=== PATIENT | male | born 1935 | race Caucasian/White ===

== ENCOUNTER 2017-12-27 09:38 | Emergency (ER) | payer MEDICARE, BC ==
[~2017-12-27] VITALS: Ht 175.3 cm; Wt 81.8 kg
[~2017-12-27 09:38] MED LIST: ASPIRIN 81M81 MG/TA2 PO; PRINZIDE 25 MG-1 TAB PO; ZOCOR 40MG40 MG PO
[2017-12-27 09:49] VITALS: TEMP 98.1
[2017-12-27] MEDS ORDERED: [UNRECOGNIZED DRUG - OTHER] TOP (09:55)
[2017-12-27] MEDS ORDERED: FLOMAX 0.40.4 MG/CAP PO (09:55)
[2017-12-27 10:36] LABS: BASO % 0.6 % (0.0-2.0); EOS # 0.1 (0.0-0.7); EOS % 1.9 % (0-4.0); GRAN # 4.7 (1.4-6.5); GRAN % 73.4 % (42.2-75.2); HEMATOCRIT 42.3 % (42.0-52.0); LYMPH # 0.9 (1.2-3.4); MEAN CELL VOLUME 89 fl (80.0-100.0); MEAN CORPUSCULAR HEMOGLOBIN 30 pg (27.0-31.0); MEAN CORPUSCULAR HGB CONC 33 g/dl (33.0-37.0); MEAN PLATELET VOLUME 12.4 fl (7.4-10.4); MONO # 0.6 (0.1-0.6); MONO % 9.9 % (1.7-9.3); PLATELET COUNT 160 K/mm3 (130-400); RED BLOOD COUNT 4.75 M/mm3 (4.20-5.60); REDCELL DISTRIBUTION WIDTH-CV 13.2 % (11.5-14.5)
[2017-12-27 10:41] LABS: ALANINE AMINOTRANSFERASE 29 U/L (21-72); ALBUMIN 3.7 gm/dL (3.5-5.0); ALKALINE PHOSPHATASE 81 U/L (50-136); ANION GAP 10 mmol/L (7-16); AST,SGOT 23 U/L (15-37); BILIRUBIN,TOTAL 0.6 mg/dL (0.0-1.0); BLOOD UREA NITROGEN 36 mg/dL (9-20); CARBON DIOXIDE 24 mmol/L (22-30); CHLORIDE 98 mmol/L (98-107); CREATININE, serum 1.22 mg/dL (0.66-1.25); GLUCOSE 98 mg/dL (74-106); POTASSIUM 4.4 mmol/L (3.4-5.0); SODIUM 133 mmol/L (137-145); TOTAL PROTEIN 6.5 gm/dL (6.4-8.2)
[2017-12-27 10:53] LABS: COLLECTION METHOD CLEAN CATCH
[2017-12-27 10:57] LABS: TROPONIN-I < 0.012 ng/mL (0.000-0.034)
[2017-12-27 11:18] LABS: MUCOUS Present /lpf; PH 5 (5-8); SQUAMOUS EPITHELIAL 0-2 /hpf; URINE APPEARANCE Clear; URINE BACTERIA None Seen /hpf; URINE BILIRUBIN Negative (NEGATIVE); URINE BLOOD Negative (NEGATIVE); URINE COLOR Yellow; URINE GLUCOSE Negative (NEGATIVE); URINE KETONE Negative (NEGATIVE); URINE LEUKOCYTE ESTERASE Negative (NEGATIVE); URINE NITRATE Negative (NEGATIVE); URINE PROTEIN(semi-quant) Negative (NEGATIVE); URINE RBC 0-2 /hpf; URINE UROBILINOGEN Negative (NEGATIVE)
[2017-12-27 12:28] VITALS: BP 131/73; PULSE 59
== END 2017-12-27 12:28 | disposition home or self-care (01) ==
LOC: COL.ER 09:38
PROVIDERS: Family Medicine
DX: R53.83 Other fatigue (principal); I10 Essential (primary) hypertension

== ENCOUNTER → 2018-01-07 | Outpatient (CLI) | payer MEDICARE, BC ==
[~2018-01-07] MED LIST changes: +FLOMAX 0.40.4 MG/CAP PO; +[UNRECOGNIZED DRUG - OTHER] TOP
== END ==
LOC: COL.VAS 12:20
DX: I65.23 Occlusion and stenosis of bilateral carotid arteries (principal)

== ENCOUNTER 2021-03-13 10:00 | Emergency (ER) | payer MEDICARE, BC ==
[2021-03-13 10:41] LABS: BASO % 0.5 % (0.0-2.0); EOS # 0.2 (0.0-0.7); EOS % 2.5 % (0-4.0); GRAN # 5.8 (1.4-6.5); GRAN % 72.5 % (42.2-75.2); HEMATOCRIT 45.4 % (42.0-52.0); LYMPH # 1.3 (1.2-3.4); MEAN CELL VOLUME 92 fl (80.0-100.0); MEAN CORPUSCULAR HEMOGLOBIN 30 pg (27.0-31.0); MEAN CORPUSCULAR HGB CONC 33 g/dl (33.0-37.0); MEAN PLATELET VOLUME 12.1 fl (7.4-10.4); MONO # 0.7 (0.1-0.6); MONO % 8.4 % (1.7-9.3); PLATELET COUNT 169 K/mm3 (130-400); RED BLOOD COUNT 4.93 M/mm3 (4.20-5.60); REDCELL DISTRIBUTION WIDTH-CV 13.2 % (11.5-14.5)
[2021-03-13 10:49] LABS: BLOOD UREA NITROGEN 34 mg/dL (9-20); CHLORIDE 104 mmol/L (98-107); CREATININE, serum 1.32 (0.66-1.25); GLUCOSE 124 mg/dL (74-106); POTASSIUM 4.2 mmol/L (3.4-5.0); SODIUM 137 mmol/L (137-145)
[2021-03-13 10:50] LABS: ALANINE AMINOTRANSFERASE 17 U/L (4-49); ALBUMIN 4.2 gm/dL (3.5-5.0); ALKALINE PHOSPHATASE 68 U/L (50-136); ANION GAP 11 mmol/L (7-16); AST,SGOT 20 U/L (15-37); BILIRUBIN,TOTAL 0.6 mg/dL (0.0-1.0); CALCIUM 8.7 mg/dL (8.4-10.2); CARBON DIOXIDE 22 mmol/L (22-30); LIPASE 81 U/L (23-300)
[2021-03-13 11:03] LABS: TROPONIN-I < 0.012 ng/mL (0.000-0.035)
[2021-03-13 12:45] LABS: COLLECTION METHOD CLEAN CATCH
[2021-03-13 12:54] LABS: MUCOUS Present /lpf; PH 5 (5-8); SQUAMOUS EPITHELIAL None Seen /hpf; URINE APPEARANCE Clear; URINE BACTERIA None Seen /hpf; URINE BILIRUBIN Negative (NEGATIVE); URINE BLOOD Negative (NEGATIVE); URINE COLOR Yellow; URINE GLUCOSE Negative (NEGATIVE); URINE KETONE Negative (NEGATIVE); URINE LEUKOCYTE ESTERASE Negative (NEGATIVE); URINE NITRATE Negative (NEGATIVE); URINE PROTEIN(semi-quant) Negative (NEGATIVE); URINE RBC 0-2 /hpf; URINE UROBILINOGEN Negative (NEGATIVE)
[2021-03-13 14:33] LABS: CLOSTRIDIUM DIFF A/B NEG; CLOSTRIDIUM DIFF A/B INTERP No C.diff present
[2021-03-13 15:25] VITALS: BP 148/90; PULSE 80; TEMP 97.6
== END 2021-03-13 15:25 | disposition home or self-care (01) ==
LOC: COL.ER 10:00
PROVIDERS: Emergency Medicine
DX: R19.7 Diarrhea, unspecified (principal); I10 Essential (primary) hypertension; E78.5 Hyperlipidemia, unspecified; Z79.899 Other long term (current) drug therapy
CPT/HCPCS: J7030

== ENCOUNTER 2024-03-15 11:07 | Inpatient (IN) | payer MEDICARE, BC ==
[~2024-03-15] VITALS: Ht 175.3 cm; Wt 107.4 kg
[2024-03-15] VITALS (14 sets, daily range): BP systolic 151–177; BP diastolic 69–107; PULSE 42–84; TEMP 98.3–99.6
[2024-03-15] MEDS ORDERED: NS 1,000 ML IV ONE (11:30)
[2024-03-15 11:40] LABS: BASO % 0.3 % (0.0-2.0); EOS # 0.1 K/mm3 (0.0-0.7); EOS % 0.9 % (0.0-4.0); GRAN # 9.2 K/mm3 (1.4-6.5); GRAN % 79.7 % (42.2-75.2); HEMATOCRIT 44.1 % (42.0-52.0); HEMOGLOBIN 14.6 g/dl (13.5-18.0); LYMPH % 8.9 % (20.0-51.0); MEAN CELL VOLUME 91 fl (80.0-100.0); MEAN CORPUSCULAR HEMOGLOBIN 30 pg (27-31); MEAN CORPUSCULAR HGB CONC 33 g/dl (33.0-37.0); MEAN PLATELET VOLUME 13.7 fl (7.4-10.4); MONO # 1.2 K/mm3 (0.1-0.6); MONO % 9.9 % (1.7-9.3); PLATELET COUNT 138 K/mm3 (130-400); RED BLOOD COUNT 4.83 M/mm3 (4.20-5.60); REDCELL DISTRIBUTION WIDTH-CV 13.3 % (11.5-14.5)
[2024-03-15 12:13] LABS: ALBUMIN 3.7 g/dL (3.4-4.8); BILIRUBIN,TOTAL 1.5 mg/dL (0.2-1.2); CALCIUM 8.8 mg/dL (8.4-10.2); CREATININE, serum 1.32 mg/dL (0.72-1.25); POTASSIUM 3.8 mEq/L (3.5-4.5); TOTAL PROTEIN 6.7 g/dl (6.2-8.1)
[2024-03-15 12:22] LABS: TROPONIN-I 0.01 ng/mL (0.00-0.033)
[2024-03-15 12:37] LABS: INR 1.1 (0.8-3.0); PROTHROMBIN TIME 11.9 SECONDS (9.7-12.8)
[2024-03-15] MEDS ORDERED: 1/2 NS 1,000 ML IV SCH ×2 (13:30→16:15)
[2024-03-15] MEDS ORDERED: Acetaminophen 325 MG TAB PO PRN (14:30)
[2024-03-15] MEDS ORDERED: Docusate Sodium 100 MG CAP PO PRN (14:30)
[2024-03-15] MEDS ORDERED: Ondansetron 4 MG/2 ML VIAL IV PRN (14:30)
[2024-03-15] MEDS ORDERED: Polyethylene Glycol 3350 17 GM PDS PO PRN (14:30)
[2024-03-15] MEDS ORDERED: niCARdipine (Cath Lab) 100 MCG/ML 10 ML VIAL IA SCH (14:45)
[2024-03-15] MEDS ORDERED: Heparin 1,000 UNITS/ML 10 ML Multi-Dose VIAL IV SCH (14:46)
[2024-03-15] MEDS ORDERED: fentaNYL 50 MCG/ML 2 ML VIAL IV SCH (15:43)
[2024-03-15] MEDS ORDERED: Midazolam 2 MG/2 ML VIAL IV SCH (15:44)
--- NOTE | 2024-03-15 15:45 | NUR ---
Taurus was transferred to Medical floor rm 317 after left heart cath with Dr. Manriquez. He is accompanied by his Son Fidel. Taurus is awake and alert, pwd with reg and unlabored resps. TR band to rt wrist, cmc intact distal. No evidence of bleeding. BS report and handoff of care to Tabitha CARREON. Please see Merge document in paper chart for record of procedure.
[2024-03-15] MEDS ORDERED: HYZAAR 12.5 MG-1 TAB PO (16:38)
[2024-03-15] MEDS ORDERED: TOPROL XL 25MG25 MG PO (16:39)
[2024-03-15] MEDS ORDERED: NORVASC 5MG5 MG/TAB PO (16:40)
[2024-03-15] MEDS ORDERED: LIPITOR20 MG PO (16:42)
[2024-03-15] MEDS ORDERED: TRIAM OI 80 0.025 TOP (16:46)
[2024-03-15] MEDS ORDERED: hydrALAZINE 20 MG/ML 1 ML VIAL IV PRN (17:15)
--- NOTE | 2024-03-15 20:41 | NUR ---
PATIENT RESTING IN BED. REPORTING DISCOMFORT IN BACK FROM HAVING TO LAY ON HIS BACK VERSUS HIS SIDE. ALSO FRUSTRATED ABOUT FREQUENCY OF POST OP VITAL SIGNS. CALL LIGHT WITHIN REACH. BED IS LOCKED AND IN LOW POSITION.
[2024-03-15] MEDS ORDERED: Simvastatin 40 MG **** subs to Atorvastatin 20 MG PO SCH (21:00)
[2024-03-15] MEDS ORDERED: Atorvastatin 20 MG TAB PO SCH (21:00)
[2024-03-15] MEDS ORDERED: amLODIPine 5 MG TAB PO SCH (21:00)
--- NOTE | 2024-03-15 23:39 | NUR ---
PATIENT CALLED REQUESTING TYLENOL SHORTLY AFTER 2100, AFTER HAVING RECEIVED HIS EVENING/HS MEDS. ASHLY CARREON, GAVE PATIENT 650 MG PO TYLENOL AND INFORMED ME THAT THE PATIENT SEEMED TO CHOKE ON THE MEDICATION AND SPIT UP A LARGE AMOUNT OF MUCUS. THIS RN THEN ASSESSED PATIENT AGAIN, LUNG SOUNDS CLEAR BILATERALLY BUT HE DID HAVE AUDIBLE SECRETIONS IN HIS THROAT. INFORMED HOSPITALIST, ARIANNA WILSON, ADVISED TO CONTINUE TO MONITOR AND WILL HAVE CHEST XRAY IN AM.
--- NOTE | 2024-03-15 23:54 | NUR ---
SECTION 8 PROPERTY MANAGER CALLED AND ADVISED THAT PATIENT WAS COMPLETELY OFF TELE MONITORING. THIS RN CHECKED LEADS, REPLACED STICKERS, AND CHANGED BATTERIES, HOWEVER PATIENT REMAINED OFF TELE. CALLED TECH BACK AND LET HIM KNOW EVERYTHING THAT WAS TRIED AND IT WAS DECIDED TO SWAP OUT BOXES. NEW TELE BOX PLACED ON PATIENT AND PATIENT IS AGAIN BEING MONITORED BY CAN DRAGGER.
[2024-03-16] VITALS (13 sets, daily range): BP systolic 113–170; BP diastolic 56–75; PULSE 57–72; TEMP 97.6–99.9
--- NOTE | 2024-03-16 03:57 | NUR ---
PCT INFORMED THIS RN THAT PATIENT'S SYSTOLIC BP WAS 170 AND WAS REPORTING PAIN 9/10. GAVE PRN 10 MG IV HYDRALAZINE FOR HIS SBP OF 170 ALONG WITH 650 MG PO TYLENOL FOR HIS PAIN. PATIENT STATES THAT THE "NEXT TIME" THIS RN GOES INTO THE ROOM HE WANTS "SOME MORPHINE TO GO TO SLEEP AND STAY ASLEEP". ATTEMPTED TO EDUCATE THAT THE PROVIDER WILL LIKELY NOT GIVE MORPHINE A SLEEP AID, PATIENT THEN ROLLED OVER TO FACE OPPOSITE WALL AND DID NOT WANT TO CONTINUE CONVERSATION.
[2024-03-16 06:43] LABS: BASO % 0.2 % (0.0-2.0); EOS % 0.1 % (0.0-4.0); GRAN # 16.6 K/mm3 (1.4-6.5); GRAN % 89.2 % (42.2-75.2); HEMATOCRIT 42.8 % (42.0-52.0); HEMOGLOBIN 14.8 g/dl (13.5-18.0); LYMPH # 0.7 K/mm3 (1.2-3.4); LYMPH % 3.8 % (20.0-51.0); MEAN CELL VOLUME 89 fl (80.0-100.0); MEAN CORPUSCULAR HEMOGLOBIN 31 pg (27-31); MEAN CORPUSCULAR HGB CONC 35 g/dl (33.0-37.0); MEAN PLATELET VOLUME 13.7 fl (7.4-10.4); MONO # 1.1 K/mm3 (0.1-0.6); PLATELET COUNT 135 K/mm3 (130-400); RED BLOOD COUNT 4.83 M/mm3 (4.20-5.60); REDCELL DISTRIBUTION WIDTH-CV 13.2 % (11.5-14.5)
[2024-03-16 07:12] LABS: CALCIUM 8.6 mg/dL (8.4-10.2); CHOLESTEROL RISK RATIO 3.8; CREATININE, serum 1.06 mg/dL (0.72-1.25); POTASSIUM 3.6 mEq/L (3.5-4.5)
--- NOTE | 2024-03-16 08:50 | NUR ---
PATIENT RESTING IN BED. REPORTS PAIN 4/10 TO BACK. REPORTS SORE THROAT AND CHEST PAIN WHEN COUGHING. ON 1 , TELEMETRY INPLACE. SHIFT ASSESSMENT COMPLETED. CALL LIGHT WITHIN REACH. BED AT LOWEST POSITION.
[2024-03-16] MEDS ORDERED: Ketorolac 15 MG/ML VIAL IV PRN (10:00)
[2024-03-16] MEDS ORDERED: TYLENOL 500MG500 MG PO (10:17)
[2024-03-16] MEDS ORDERED: CENTRUM SILVER1 CTB PO (10:18)
--- NOTE | 2024-03-16 11:09 | NUR ---
SW met with patient to complete initial assessment for discharge planning. Patient verified that he lives outside of [place] alone. He lists his daughter Catrachita Schneider ([phone]) as DPOA and his son Renan is also listed as DPOA. Patient reports to see Dr. Meyer as his PCP and uses [facility] in [place] without difficulty. Patient states his only DME is a CPAP. Patient is active and independent and plans to return home at discharge. Discharge plan: Home
[2024-03-16 15:19] LABS: COLLECTION METHOD CLEAN CATCH
[2024-03-16 15:37] LABS: URINE APPEARANCE CLEAR (CLEAR/HAZY); URINE BLOOD NEGATIVE (NEGATIVE); URINE COLOR YELLOW (YELLOW); URINE GLUCOSE NEGATIVE (NEGATIVE); URINE KETONE TRACE (NEGATIVE); URINE NITRATE NEGATIVE (NEGATIVE); URINE PROTEIN(semi-quant) 1+ (NEGATIVE)
--- NOTE | 2024-03-16 21:01 | NUR ---
PATIENT RESTING IN BED WATCHING TV. REPORTS MID STERNUM CHEST PAIN RATED 4/10. CALL LIGHT WITHIN REACH. BED IS LOCKED AND IN LOW POSITION. CPAP IN USE.
[2024-03-17] VITALS (13 sets, daily range): BP systolic 124–161; BP diastolic 57–84; PULSE 48–74; TEMP 98.2–99
[2024-03-17 07:04] LABS: BASO # 0.1 K/mm3 (0.0-0.2); BASO % 0.5 % (0.0-2.0); EOS # 0.3 K/mm3 (0.0-0.7); EOS % 2.7 % (0.0-4.0); GRAN # 9.5 K/mm3 (1.4-6.5); GRAN % 79.2 % (42.2-75.2); HEMATOCRIT 43.3 % (42.0-52.0); HEMOGLOBIN 14.5 g/dl (13.5-18.0); LYMPH # 0.9 K/mm3 (1.2-3.4); LYMPH % 7.6 % (20.0-51.0); MEAN CELL VOLUME 90 fl (80.0-100.0); MEAN CORPUSCULAR HEMOGLOBIN 30 pg (27-31); MEAN CORPUSCULAR HGB CONC 34 g/dl (33.0-37.0); MEAN PLATELET VOLUME 13.7 fl (7.4-10.4); MONO # 1.1 K/mm3 (0.1-0.6); MONO % 9.5 % (1.7-9.3); PLATELET COUNT 112 K/mm3 (130-400); RED BLOOD COUNT 4.82 M/mm3 (4.20-5.60); REDCELL DISTRIBUTION WIDTH-CV 13.2 % (11.5-14.5)
[2024-03-17 07:21] LABS: CALCIUM 8.4 mg/dL (8.4-10.2); CREATININE, serum 1.15 mg/dL (0.72-1.25); POTASSIUM 3.8 mEq/L (3.5-4.5)
--- NOTE | 2024-03-17 08:38 | NUR ---
Patient called asking for pain medication LEONOR.States pain 100/10. PRN ketorolac provided.
[2024-03-17] MEDS ORDERED: Mag/Al Hydrox/Simeth Susp 30 ML CUP PO PRN (10:15)
[2024-03-17] MEDS ORDERED: Mag/Al Hydrox/Simeth Susp 30 ML CUP PO SCH (10:30)
--- NOTE | 2024-03-17 13:58 | NUR ---
shortage worker reviewed PT and OT evaluation which stated patient could benefit from home health. SW met with patient and provided the Medicare.gov list of options for home health. Patient stated his son, Renan, would be coming up soon to visit with patient. SW explained she would follow up with them. SW attempted to contact Catrachita, patient's daughter/point of contact, but the number on the chart is incorrect. MARIKA met with patient and received the updated number P# [phone]. SW also obtained Renan, son, P# [phone]. SW left a voicemail with Renan, patient's son, to discuss discharge plan. SW contacted Catrachita and explained she was wanting to discuss discharge plan which would be home with home health. SW explained home health services. Catrachita stated she lives in [place] and would be up to visit with patient today. SW received a voicemail from Renan stating he was in the hospital and social and political studies professor could visit with him in the patient's room. MARIKA met with patient, patient's son and daughter. SW explained what home health services are and what their benefit is. SW reviewed the Medicare.gov list of options for home health. SW explained she would give them time to review together and they could give the social and political studies professor options for referral. MARIKA obtained the home health choices which is [facility] (first choice), [facility] (second choice) and [facility] (third choice). MARIKA secure emailed referral to [facility]. Discharge plan: Home with Home Health
--- NOTE | 2024-03-17 14:41 | NUR ---
link trainer maintenance worker was notified [facility] can accept patient for home health. MARIKA notified Renan and Catrachita. Renan stated it would be best for the home health agency to call him for the first appointment in case patient does not answer. MARIKA provided Renan's phone number to [facility] product support sales representative. Discharge plan: Home with [facility]
--- NOTE | 2024-03-17 14:46 | NUR ---
Patient is back from intervention, alert and oriented x 4, denies any pain. VSS.
[2024-03-17] MEDS ORDERED: Celecoxib 200 MG CAP PO SCH (15:00)
--- NOTE | 2024-03-17 19:15 | NUR ---
Pt dId not complained of chest pain the rest of the day. He has been eating well. Right now he is sleeping. Report given to night RN.
[2024-03-18] VITALS (7 sets, daily range): BP systolic 128–165; BP diastolic 62–88; PULSE 53–61; TEMP 98.1–98.5
[2024-03-18 07:08] LABS: BASO # 0.1 K/mm3 (0.0-0.2); BASO % 0.5 % (0.0-2.0); EOS # 0.4 K/mm3 (0.0-0.7); EOS % 4.1 % (0.0-4.0); GRAN # 8.5 K/mm3 (1.4-6.5); GRAN % 79.5 % (42.2-75.2); HEMATOCRIT 40.3 % (42.0-52.0); HEMOGLOBIN 13.8 g/dl (13.5-18.0); LYMPH # 0.7 K/mm3 (1.2-3.4); LYMPH % 6.9 % (20.0-51.0); MEAN CELL VOLUME 89 fl (80.0-100.0); MEAN CORPUSCULAR HEMOGLOBIN 30 pg (27-31); MEAN CORPUSCULAR HGB CONC 34 g/dl (33.0-37.0); MEAN PLATELET VOLUME 13.6 fl (7.4-10.4); MONO # 0.9 K/mm3 (0.1-0.6); MONO % 8.5 % (1.7-9.3); PLATELET COUNT 136 K/mm3 (130-400); RED BLOOD COUNT 4.54 M/mm3 (4.20-5.60)
[2024-03-18 07:29] LABS: CALCIUM 7.9 mg/dL (8.4-10.2); CREATININE, serum 0.93 mg/dL (0.72-1.25); POTASSIUM 3.6 mEq/L (3.5-4.5)
--- NOTE | 2024-03-18 08:00 | NUR ---
Patient laying in bed, A&Ox4. VSS 2L NC O2. IV CDI. Reports overall pain. Call light within reach
[2024-03-18] MEDS ORDERED: RYTHMOL 15150 MG/TAB PO (12:07)
--- NOTE | 2024-03-18 12:07 | NUR ---
Data: Patient accepted spiritual care visit offered during Community Aide visit. Patient lives alone and enjoys having someone to have conversation with. Life review. Assessment: Patient stated he is feeling stressed about the uncertainty of his diagnosis and about an upcoming trip to [place]. Plan of Care: Community Aide provided supportive listening and prayer. Chaplains will remain availabale as needed/requested while Patient is admitted to this hospital. Patient thanked Community Aide for the visit.
[2024-03-18] MEDS ORDERED: CELEBREX 200MG200 MG PO (12:08)
[2024-03-18] MEDS ORDERED: PROTONIX 40MG T40 MG PO (12:09)
[2024-03-18] MEDS ORDERED: AMOXICILLIN 8751 TAB PO (12:14)
--- NOTE | 2024-03-18 13:23 | NUR ---
Discharge paperwork reviewed with the patient. Patient verbalized an understanding. IV removed, tip intact. Gauze and coban appplied. Patient finishing eating lunch. Call light within reach
--- NOTE | 2024-03-18 14:37 | NUR ---
Patient taken by wheelchair to awaiting vehicle with personal belongings and discharge paperwork
--- NOTE | 2024-03-20 09:51 | NUR ---
mold loft worker contacted Edward with [facility] and confirmed that they received home health orders and are starting care for the patient.
== END 2024-03-18 16:34 | disposition home or self-care (01) | DRG 179 ==
LOC: COL.ER 11:07 → MEDICAL 14:39
PROVIDERS: Family Medicine; Physician Assistant; ADMIT Internal Medicine
PROC: 4A023N7 Measurement of Cardiac Sampling and Pressure, Left Heart, Percutaneous Approach (ICD-10-PCS; principal; 2024-03-15)
PROC: B2111ZZ Fluoroscopy of Multiple Coronary Arteries using Low Osmolar Contrast (ICD-10-PCS; 2024-03-15)
DX: J69.0 Pneumonitis due to inhalation of food and vomit (principal); E78.5 Hyperlipidemia, unspecified; I12.9 Hypertensive chronic kidney disease with stage 1 through stage 4 chronic kidney disease, or unspecified chronic kidney disease; D72.829 Elevated white blood cell count, unspecified; N40.0 Benign prostatic hyperplasia without lower urinary tract symptoms; Z66 Do not resuscitate; G47.33 Obstructive sleep apnea (adult) (pediatric); N18.9 Chronic kidney disease, unspecified; I34.0 Nonrheumatic mitral (valve) insufficiency; Z20.822 Contact with and (suspected) exposure to COVID-19; I49.3 Ventricular premature depolarization; Z99.89 Dependence on other enabling machines and devices; Z98.52 Vasectomy status; Z79.899 Other long term (current) drug therapy; Z79.82 Long term (current) use of aspirin; Z87.891 Personal history of nicotine dependence; Z91.81 History of falling
CPT/HCPCS: C1769; J0295; J0360; J1644; J1885; J2250; J2404; J3010

== ENCOUNTER 2024-04-12 10:25 | Emergency (ER) | payer MEDICARE, BC ==
[~2024-04-12] VITALS: Ht 175.3 cm; Wt 102.3 kg
[~2024-04-12 10:25] MED LIST changes: +AMOXICILLIN 8751 TAB PO; +CELEBREX 200MG200 MG PO; +CENTRUM SILVER1 CTB PO; +HYZAAR 12.5 MG-1 TAB PO; +LIPITOR20 MG PO; +NORVASC 5MG5 MG/TAB PO; +PROTONIX 40MG T40 MG PO; +RYTHMOL 15150 MG/TAB PO; +TOPROL XL 25MG25 MG PO; +TRIAM OI 80 0.025 TOP; +TYLENOL 500MG500 MG PO
[2024-04-12 10:35] VITALS: TEMP 97.8
[2024-04-12 11:28] LABS: BASO # 0.1 K/mm3 (0.0-0.2); BASO % 0.7 % (0.0-2.0); EOS # 0.3 K/mm3 (0.0-0.7); EOS % 4.6 % (0.0-4.0); GRAN # 5.4 K/mm3 (1.4-6.5); GRAN % 73.2 % (42.2-75.2); HEMATOCRIT 46.1 % (42.0-52.0); LYMPH % 13.3 % (20.0-51.0); MEAN CELL VOLUME 91 fl (80.0-100.0); MEAN CORPUSCULAR HEMOGLOBIN 30 pg (27-31); MEAN CORPUSCULAR HGB CONC 33 g/dl (33.0-37.0); MEAN PLATELET VOLUME 12.9 fl (7.4-10.4); MONO # 0.6 K/mm3 (0.1-0.6); MONO % 7.9 % (1.7-9.3); PLATELET COUNT 200 K/mm3 (130-400); RED BLOOD COUNT 5.05 M/mm3 (4.20-5.60); REDCELL DISTRIBUTION WIDTH-CV 13.6 % (11.5-14.5)
[2024-04-12 11:42] LABS: ALANINE AMINOTRANSFERASE 17 U/L (0-55); ALBUMIN 3.5 g/dL (3.4-4.8); ALKALINE PHOSPHATASE 150 U/L (40-150); ANION GAP 10 mmol/L (7-16); AST,SGOT 17 U/L (5-34); BILIRUBIN,TOTAL 0.7 mg/dL (0.2-1.2); BLOOD UREA NITROGEN 17 mg/dL (8-26); CHLORIDE 107 mEq/L (98-107); CREATININE, serum 1.08 mg/dL (0.72-1.25); GLUCOSE 99 mg/dL (70-99); POTASSIUM 4.3 mEq/L (3.5-4.5); SODIUM 141 mEq/L (136-145); TOTAL PROTEIN 6.6 g/dl (6.2-8.1)
[2024-04-12 11:48] LABS: TROPONIN-I < 0.010 ng/mL (0.00-0.033)
[2024-04-12] MEDS ORDERED: Ketorolac 15 MG/ML VIAL IV ONE (12:00)
[2024-04-12 12:38] VITALS: BP 163/97; PULSE 53
[2024-04-12] MEDS ORDERED: NORCO 325 MG-51 TAB PO (12:39)
--- NOTE | 2024-04-12 12:50 | NUR ---
workers compensation claims analyst was informed by LAURI Gar that pt was seen here previously and they were concerned about his follow through with an appointment and medication picking machine operator. MARIKA met with pt who was unsure about his provider at first, but then found a note reporting it as Dr. Meyer at [facility]. Pt confirmed to have Medicare and BCBS insurance. He expressed no difficulties affording medications and would be amendable to picking them up at [facility]. Pt confirmed he has "started paperwork with [facility]." He reports it as a "future assurance" and he did not want it now. He then reports being agreeable to their services. MARIKA informed LAURI Gar of the above conversation and that social media sr strategy manager at PCP will be advised to follow up. MARIKA emailed MARIKA Gonzalez at pt's PCP office (MARIKA Tsang is out) that pt needs appt follow up and to reach out. MARIKA faxed updates to [facility].
== END 2024-04-12 12:50 | disposition home or self-care (01) ==
LOC: COL.ER 10:25
PROVIDERS: Physician Assistant
DX: S22.31XG Fracture of one rib, right side, subsequent encounter for fracture with delayed healing (principal); F17.200 Nicotine dependence, unspecified, uncomplicated; X58.XXXD Exposure to other specified factors, subsequent encounter
CPT/HCPCS: J1885